=== PATIENT | female | born 1970 | race Caucasian/White ===

== ENCOUNTER 2016-10-13 22:00 | Emergency (ER) | payer OTHER ==
[~2016-10-13] VITALS: Ht 154.9 cm; Wt 92.0 kg
[2016-10-13 22:06] VITALS: Ht 154.9 cm; Wt 92.0 kg
--- NOTE | 2016-10-14 00:31 | ERD ---
ER Documentation Chief Complaint Date/Time DATE: 10/14/16 TIME: 00:27 Chief Complaint MID AP RADIATING TO BACK X6 DAYS. DENIES N/V DIARRHEA. HPI 45-year-old female with a history of ovarian cyst presents to the emergency department complaining of a 6 day history of intermittent abdominal pain as well as bilateral flank pain. Patient states that the pain has gradually worsened and currently rates it as a mid abdominal 6 out of 10 sharp intermittent pain with associated nausea. Patient denies any vomiting or diarrhea as well as fever. Her last normal bowel movement was today and normal for her without any evidence of blood or dark stool. Patient has not attempted to treat her symptoms with medication at home thus far. Patient experienced similar symptoms prior 6 years ago and was diagnosed with the ovarian cyst. Patient is currently on her period. ROS All systems reviewed and are negative except as per history of present illness. Medications Home Meds Active Scripts Ondansetron (Ondansetron Odt) 4 Mg Tab.rapdis, 4 MG PO Q6H Y for NAUSEA AND/OR VOMITING, #20 TAB Prov:SHERLY RAMOS PA-C 10/14/16 Ibuprofen* (Motrin*) 600 Mg Tab, 600 MG PO Q6H Y for PAIN for 7 Days, TAB Prov:SHERLY RAMOS PA-C 10/14/16 Simethicone (Gas-X) 125 Mg Capsule, 125 MG PO BID for 7 Days, CAP Prov:SHERLY RAMOS PA-C 10/14/16 Hydrocodone/Acetaminophen ([place] 5-325 Tablet) 1 Each Tablet, 1 EACH PO Q8, #10 TAB Prov:SHERLY RAMOS PA-C 10/14/16 Allergies Allergies: Coded Allergies: morphine (Verified Allergy, Intermediate, DIZZINESS, 10/13/16) PMhx/Soc Medical and Surgical Hx: pt denies Medical Hx Hx Alcohol Use: No Hx Substance Use: No Hx Tobacco Use: No Smoking Status: Never smoker Physical Exam Vitals Vital Signs Date Time Temp Pulse Resp B/P Pulse Ox O2 Delivery O2 Flow Rate FiO2 10/14/16 04:54 68 18 147/68 98 Room Air 10/13/16 22:06 97.3 66 20 145/71 99 Physical Exam Const: Well developed, well-nourished, no acute distress Head: Atraumatic Eyes: Normal Conjunctiva ENT: Normal External Ears, Nose and Mouth. Neck: Full range of motion..~ No meningismus. Resp: Clear to auscultation bilaterally Cardio: Regular rate and rhythm, no murmurs Abd: Soft, non tender, non distended. Normal bowel sounds Skin: No petechiae or rashes Back: Bilateral flank pain Ext: No cyanosis, or edema Neur: Awake and alert Psych: Normal Mood and Affect Result Diagram: 10/14/16 0046 10/14/16 0046 Results 24 hrs Laboratory Tests Test 10/14/16 00:46 White Blood Count 5.810^3/ul Red Blood Count 4.5410^6/ul Hemoglobin 12.2g/dl Hematocrit 39.3% Mean Corpuscular Volume 86.6fl Mean Corpuscular Hemoglobin 26.9pg Mean Corpuscular Hemoglobin Concent 31.0g/dl Red Cell Distribution Width 14.9% Platelet Count 37721^3/UL Mean Platelet Volume 10.8fl Neutrophils % 65.2% Lymphocytes % 22.4% Monocytes % 9.5% Eosinophils % 2.4% Basophils % 0.2% Nucleated Red Blood Cells % 0.0/100WBC Neutrophils # 3.810^3/ul Lymphocytes # 1.310^3/ul Monocytes # 0.610^3/ul Eosinophils # 0.110^3/ul Basophils # 0.010^3/ul Nucleated Red Blood Cells # 0.010^3/ul Urine Color LT. YELLOW Urine Clarity CLEAR Urine pH 5.5 Urine Specific [place] 1.025 Urine Ketones NEGATIVE Urine Nitrite NEGATIVE Urine Bilirubin NEGATIVE Urine Urobilinogen 1.0 E.U./dL Urine Leukocyte Esterase NEGATIVE Urine Microscopic RBC 0-2/HPF Urine Microscopic WBC 0-2/HPF Urine Squamous Epithelial Cells MANY Urine Bacteria OCCASIONAL Urine Hemoglobin 1+ Urine Glucose NEGATIVE% Urine Total Protein NEGATIVE Sodium Level 139mmol/L Potassium Level 4.0mmol/L Chloride Level 101mmol/L Carbon Dioxide Level 28mmol/L Anion Gap 14 Blood Urea Nitrogen 16mg/dl Creatinine 0.70mg/dl Glucose Level 112mg/dl Calcium Level 8.7mg/dl Total Bilirubin 0.1mg/dl Direct Bilirubin 0.00mg/dl Indirect Bilirubin 0.1mg/dl Aspartate Amino Transf (AST/SGOT) 20IU/L Alanine Aminotransferase (ALT/SGPT) 36IU/L Alkaline Phosphatase 69IU/L Total Protein 7.4g/dl Albumin 4.0g/dl Globulin 3.40g/dl Albumin/Globulin Ratio 1.17 Lipase 67U/L Current Medications Medications (Trade) Dose Ordered Sig/Lyric Route PRN Reason Start Time Stop Time Status Last Admin Dose Admin Sodium Chloride (NS) 1,000 ml @ 1,000 mls/hr Q1H STAT IV 10/14/16 00:33 10/14/16 01:32 DC 10/14/16 00:59 Ondansetron HCl (Zofran Inj) 4 mg ONCE STAT IV 10/14/16 00:33 10/14/16 00:37 DC 10/14/16 00:59 Acetaminophen (Tylenol Tab) 650 mg ONCE ONCE PO 10/14/16 01:00 10/14/16 01:01 DC 10/14/16 00:59 Morphine Sulfate (morphine) 4 mg ONCE STAT IV 10/14/16 04:41 10/14/16 04:43 DC 10/14/16 04:49 Ondansetron HCl (Zofran Inj) 4 mg ONCE STAT IV 10/14/16 04:41 10/14/16 04:43 DC 10/14/16 04:48 Diphenhydramine HCl (Benadryl) 25 mg ONCE ONCE IV 10/14/16 05:00 10/14/16 05:01 DC 10/14/16 04:49 Procedures/MDM ROCEDURE: CT abdomen and pelvis without intravenous contrast. CLINICAL INDICATION: Pain. TECHNIQUE: CT of the abdomen/pelvis was performed utilizing axial images with reconstructions in sagittal and coronal planes. The administered radiation dose is CTDI 13.4 mGy, DLP 782 mGy-cm. COMPARISON: No pertinent prior examinations were submitted for comparison. FINDINGS: Visualized Chest: The visualized lung bases are clear. Abdomen: The liver, spleen, pancreas, and adrenal glands are unremarkable. Prior cholecystectomy is noted. The kidneys are without hydronephrosis. No definite urinary calculi are seen. There is no evidence of bowel obstruction. The appendix is normal. No intra- abdominal free air is seen. There is no evidence of intra-abdominal adenopathy or free fluid. Pelvis: There is no evidence of pelvic adenopathy. The uterus is mildly enlarged and there is likely some endometrial thickening. The urinary bladder is unremarkable. There is no pelvic free fluid. Osseous structures: Unremarkable. IMPRESSION: No acute findings. Mildly enlarged uterus with likely endometrial thickening. This can be further evaluated with ultrasound as clinically warranted. RPTAT: HIKT .Robert Epstein MD, Date Time Electronically viewed and signed by .Robert Epstein MD, on 10/14/2016 02:13 .T/ CC: SHERLY RAMOS PA-C 45-year-old female with a history of ovarian cysts presents with middle abdominal and bilateral flank pain 6 days. Patient's vital signs were reviewed. Patient was afebrile, non-tachycardic, normotensive and non-hypoxic upon arrival. CBC showed no evidence of systemic infection or severe anemia. CMP showed no evidence of electrolyte abnormalities, severe acidosis, alkalosis , renal failure, or liver disease. Lipase showed no evidence of acute pancreatitis. UA showed no evidence of acute infection or hematuria. Urine test was negative. Patient received a bolus of fluids as well as pain medication while in the emergency department and reports improvement of symptoms. At this time I have low suspicion for ectopic , ovarian torsion, tubo- ovarian abscess, small bowel obstruction, diverticulitis, cholecystitis, or other acute abdomen. History and physical exam consistent with abdominal pain of unknown etiology. CAT scan revealed thickened endometrium however patient is currently on her period. CT scan otherwise unremarkable. Patient to follow-up with primary care physician and [employer] specialist. I recommended to the patient to follow-up with a GI specialist of abdominal symptoms continue to persist. Based on patient's history of present illness and physical examination the decision was made to discharge. The patient was re-evaluated after ED treatment and stabilizing measures, and symptoms have improved. There is no evidence of life threatening injuries or illnesses at this time. On re-examination, patient resting in no distress, stable vital signs, reports feeling better and safe for discharge with outpatient follow up with PMD in 1-2 days. Patient given return precautions. Departure Diagnosis: Primary Impression: Abdominal pain Abdominal location: upper abdomen, unspecified Qualified Code: R10.10 - Pain of upper abdomen Additional Impressions: Flank pain Nausea SHERLY RAMOS PA-C Oct 14, 2016 00:31
[2016-10-14] MEDS ORDERED: SOD CHLORIDE 0.9% 1,000 ML IV STA (00:33)
[2016-10-14] MEDS ORDERED: ONDANSETRON 4 MG INJ IV STA ×2 (00:33→04:41)
[2016-10-14] MEDS ORDERED: ACETAMINOPHEN 325 MG TAB PO ONE (01:00)
[2016-10-14 01:54] LABS: ADD SCAN DIFF NO
[2016-10-14 02:03] LABS: BASOPHILS % 0.2 % (0.0-2.0); EOSINOPHILS # 0.1 10^3/ul (0.0-0.5); EOSINOPHILS % 2.4 % (0.0-7.0); HEMATOCRIT 39.3 % (37.0-47.0); HEMOGLOBIN 12.2 g/dl (12.0-16.0); LYMPHOCYTES # 1.3 10^3/ul (0.8-2.9); LYMPHOCYTES % 22.4 % (15.0-51.0); MEAN CORPUSCULAR HEMOGLOBIN 26.9 pg (29.0-33.0); MEAN CORPUSCULAR VOLUME 86.6 fl (82.0-101.0); MEAN PLATELET VOLUME 10.8 fl (7.4-10.4); MONOCYTE # 0.6 10^3/ul (0.3-0.9); MONOCYTES % 9.5 % (0.0-11.0); NEUTROPHIL # 3.8 10^3/ul (1.6-7.5); NEUTROPHILS % 65.2 % (39.0-77.0); PLATELET COUNT 308 10^3/UL (140-415); RED BLOOD COUNT 4.54 10^6/ul (4.20-5.40); RED CELL DISTRIBUTION WIDTH 14.9 % (11.5-14.5); WHITE BLOOD COUNT 5.8 10^3/ul (4.8-10.8)
[2016-10-14 02:09] LABS: ALBUMIN/GLOBULIN RATIO 1.17; BILIRUBIN,INDIRECT 0.1 mg/dl (0-1.1); BILIRUBIN,TOTAL 0.1 mg/dl (0.2-1.3); CREATININE 0.7 mg/dl (0.44-1.00); TOTAL PROTEIN 7.4 g/dl (6.1-8.1)
[2016-10-14 02:10] LABS: CALCIUM 8.7 mg/dl (8.4-10.2)
--- NOTE | 2016-10-14 02:18 | RADRPT ---
PROCEDURE: CT abdomen and pelvis without intravenous contrast. CLINICAL INDICATION: Pain. TECHNIQUE: CT of the abdomen/pelvis was performed utilizing axial images with reconstructions in s agittal and coronal planes. The administered radiation dose is CTDI 22 mGy, DLP 1341 mGy-cm. COMPARISON: No pertinent prior examinations were submitted for comparison. FINDINGS: Visualized Chest: The visualized lung bases are clear. Abdomen: The spleen, pancreas, gallbladder,and adrenal glands are unremarkable. The liver is diffusely dec reased in attenuation, compatible with hepatic steatosis. The kidneys are without hydronephrosis. No definite urinary calculi are seen. There is a 13 mm part ially exophytic soft tissue density lesion at the posterior aspect of the right kidney. There is no evidence of bowel obstruction. The appendix is normal. No intra-abdominal free air is seen. Some trace fatty infiltrative changes are seen within the mid abdominal mesentery with some s paring around the mesenteric lymph nodes. There is a small to moderate omentum containing ventral abdominal hernia. There is no evidence of intra-abdominal adenopathy or free fluid. Pelvis: There is no evidence of pelvic adenopathy. The uterus and ovaries are without enlargement. The uri nary bladder is unremarkable. There is no pelvic free fluid. Osseous structures: Unremarkable. IMPRESSION: Minimal mesenteric inflammatory changes which could represent mesenteric panniculitis in the appropr iate clinical setting. Hepatic steatosis. Small isodense right renal lesion which likely represents a hemorrhagic cyst although it is not defi nitively characterize. This can be further evaluated with contrast enhanced exam. Small to moderate omentum containing ventral abdominal hernia. RPTAT: HIKT .Robert Epstein MD, Date Time Electronically viewed and signed by .Robert Epstein MD, on 10/14/2016 02:18 .T/
[2016-10-14 02:25] LABS: ADD UMIC YES; URINE BILIRUBIN (Dip) NEGATIVE (NEGATIVE); URINE BLOOD (Dip) 1+ (NEGATIVE); URINE COLOR LT. YELLOW (YELLOW); URINE GLUCOSE (Dip) NEGATIVE (NEGATIVE); URINE KETONES (Dip) NEGATIVE (NEGATIVE); URINE LEUKOCYTE ESTERASE (Dip) NEGATIVE (NEGATIVE); URINE NITRITE (Dip) NEGATIVE (NEGATIVE); URINE TOTAL PROTEIN (Dip) NEGATIVE (NEGATIVE); URINE UROBILINOGEN (Dip) 1.0 E.U./dL (0.1-1.0)
[2016-10-14 02:38] LABS: BACTERIA,URINE OCCASIONAL; SQUAMOUS EPITHELIAL CELL,UR MANY; URINE RBCS 0-2 /HPF ([, 0])
[2016-10-14] MEDS ORDERED: HYDR-906 PO (04:33)
[2016-10-14] MEDS ORDERED: SIME125C PO (04:33)
[2016-10-14] MEDS ORDERED: ONDA4TAB14 PO (04:33)
[2016-10-14] MEDS ORDERED: IBUP-1542 PO (04:33)
[2016-10-14] MEDS ORDERED: morphine 4 MG/ML VIAL IV STA (04:41)
[2016-10-14 04:54] VITALS: BP 147/68; PULSE 68; RESP 18
[2016-10-14] MEDS ORDERED: DIPHENHYDRAMINE 50 MG INJ IV ONE (05:00)
== END 2016-10-14 05:24 | disposition home or self-care (01) ==
LOC: FTE 22:00
DX: R10.10 Upper abdominal pain, unspecified (principal); R11.0 Nausea
CPT/HCPCS: 36415; 74176; 80053; 81001; 83690; 85025; 96374; 96375; 96376; J1200; J2270; J2405; J7030; Z7502; Z7610; 81003